=== PATIENT | male | born 1970 | race Caucasian/White ===

== ENCOUNTER 2021-10-14 10:31 | Outpatient (CLI) | payer OTHER, SELFPAY ==
--- NOTE | 2021-10-14 11:24 | XR_ITS ---
WS: [id number] Exam: XR foot RT min 3V* [id number] Date/Time of Exam: 10/14/2021 11:39 AM Reason For Exam: PAIN IN R FOOT No fracture or dislocation. No soft tissue foreign bodies are seen. There is beaking along the dorsal margin of the anterior talus which can sometimes be seen with tarsal coalition. Joint structures are well-maintained. XR/XR foot RT min 3V* [id number] IMPRESSION: 1. No fracture or dislocation. 2. Beginning along the dorsal margin of the anterior talus. This can sometimes be seen with tarsal coalition.
[2021-10-14 12:53] LABS: Blood Urea Nitrogen 16 mg/dL (6-20); Carbon Dioxide 29 mmol/L (22-29); Chloride 105 mmol/L (98-107); Glomerular Filtration Rate 89.3 mL/min (90-130); Glucose 98 mg/dL (65-115); Osmolality Calculated 297 mOsm/kg (285-295); Sodium 143 mmol/L (136-145); Uric Acid 3.5 mg/dL (3.4-7.0)
== END 2021-10-14 10:32 | disposition home or self-care (01) ==
PROVIDERS: PCP Family Medicine; Visit Provider Internal Medicine
DX: M79.671 Pain in right foot (principal)
CPT/HCPCS: 36415; 73630; 80048; 84550